=== PATIENT | male | born 1990 ===

== ENCOUNTER 2017-12-26 00:50 | Emergency (ER) | payer SELFPAY ==
[2017-12-26 01:05] VITALS: BMI 27.5
[2017-12-26 01:08] VITALS: RESP 18; TEMP 98.6; O2SAT 98
--- NOTE | 2017-12-26 01:34 | ED PDOC ---
HPI: Psych/Substance Abuse Time Seen by Provider: 12/26/17 01:23 Chief Complaint (Nursing): Alcohol Ingestion Chief Complaint (Provider): etoh, suicidal ideations History Per: Patient, EMS History/Exam Limitations: intoxication Additional Complaint(s): 27 y/o male brought in by EMS for evaluation of alcohol intoxication. As per EMS, patient's partner called 911 because he was drinking tonight and then was found to have a cord wrapped around his neck stating that he wanted to kill himself. Patient admits to drinking 2 bottles of tequila, denies suicidal/ homicidal ideations, hallucinations, or acute medical complaints. Past Medical History Reviewed: Historical Data, Nursing Documentation, Vital Signs Vital Signs: Last Vital Signs Temp 98.6 F 12/26/17 01:05 Pulse 133 H 12/26/17 01:05 Resp 18 12/26/17 01:05 BP 150/86 12/26/17 01:05 Pulse Ox 98 12/26/17 01:05 - Medical History PMH: No Chronic Diseases - Surgical History Surgical History: Hernia Repair - Family History Family History: States: Unknown Family Hx - Social History Current smoker - smoking cessation education provided: No Alcohol: Social Drugs: Denies - Immunization History Hx Tetanus Toxoid Vaccination: Yes Hx Influenza Vaccination: No Hx Pneumococcal Vaccination: No - Home Medications Home Medications: Ambulatory Orders Medication Instructions Recorded Naproxen [Naprosyn] 1 tab PO BID PRN #20 tab 08/16/17 Silver Sulfadiazine 1% [Silvadene 1 ea EXT BID #1 jar 08/16/17 1%] Ibuprofen [Motrin] 600 mg PO Q8 #30 tab 08/18/17 - Allergies Allergies/Adverse Reactions: Allergies Allergy/AdvReac Type Severity Reaction Status Date / Time No Known Allergies Allergy Verified 12/26/17 01:05 Review of Systems ROS Statement: Except As Marked, All Systems Reviewed And Found Negative Psych: Positive for: Suicidal ideation Physical Exam - Reviewed Nursing Documentation Reviewed: Yes Vital Signs Reviewed: Yes - Physical Exam Appears: Positive for: Well, Non-toxic, No Acute Distress Head Exam: Positive for: ATRAUMATIC, NORMAL INSPECTION, NORMOCEPHALIC Skin: Positive for: Normal Color Eye Exam: Positive for: Normal appearance ENT: Positive for: Normal ENT Inspection Cardiovascular/Chest: Positive for: Regular Rate, Rhythm Respiratory: Positive for: Normal Breath Sounds Gastrointestinal/Abdominal: Positive for: Normal Exam Back: Positive for: Normal Inspection Extremity: Positive for: Normal ROM Neurologic/Psych: Positive for: Alert, Oriented - Laboratory Results Result Diagrams: 12/26/17 02:00 12/26/17 02:00 - ECG O2 Sat by Pulse Oximetry: 98 - Progress ED Course And Treament: labs, urine, 1:1, crisis eval 3:30 Patient evaluated by fly worker; does not meet criteria for admission at this time as per Dr. Rosario. Patient stable for discharge. Disposition - Clinical Impression Clinical Impression: Alcohol use disorder - Patient ED Disposition Is Patient to be Admitted: No Counseled Patient/Family Regarding: Studies Performed, Diagnosis, Need For Followup - Disposition Disposition: Routine/Home Disposition Time: 03:47 Condition: STABLE Instructions: Alcohol Use - When Is Drinking a Problem? Print Language: [place]
[2017-12-26 02:04] LABS: BASO # 0.1 K/uL (0.0-0.2); BASO % 0.6 % (0.0-2.0); EOS # 0.1 K/uL (0.0-0.7); EOS % 1.1 % (0.0-4.0); HEMOGLOBIN 16.4 g/dL (12.0-18.0); LYMPH # 3.1 K/uL (1.0-4.3); LYMPH % 35.5 % (20.0-40.0); MEAN CORPUSCULAR HEMOGLOBIN 29.6 pg (27.0-31.0); MEAN CORPUSCULAR HGB CONC 34.1 g/dL (33.0-37.0); MEAN PLATELET VOLUME 7.5 fl (7.2-11.7); MONO # 0.6 K/uL (0.0-0.8); MONO % 6.6 % (0.0-10.0); NEUT # 4.9 K/uL (1.8-7.0); NEUT % 56.2 % (50.0-75.0); NRBC % 0.1 % (0.0-0.0); RBC 5.52 Mil/uL (4.40-5.90); RED CELL DISTRIBUTION WIDTH 13.2 % (11.5-14.5); WHITE BLOOD COUNT 8.8 K/uL (4.8-10.8)
[2017-12-26 02:11] LABS: URINE BILIRUBIN NEGATIVE (NEGATIVE); URINE BLOOD SMALL (NEGATIVE); URINE CLARITY CLEAR (Clear); URINE COLOR STRAW (YELLOW); URINE GLUCOSE (UA) NEG (Normal); URINE LEUKOCYTE ESTERASE NEG Leu/uL (Negative); URINE PROTEIN 30 mg/dL (NEGATIVE); URINE UROBILINOGEN 0.2-1.0 mg/dL (0.2-1.0)
[2017-12-26 02:12] LABS: ALB/GLOB RATIO 1.4 (1.0-2.1); ALBUMIN 4.7 g/dL (3.5-5.0); ALT/SGPT 60 U/L (21-72); AST/SGOT 39 U/L (17-59); BLOOD UREA NITROGEN 17 mg/dl (9-20); CALCIUM 9.3 mg/dL (8.4-10.2); GFR AFRICAN-AMERICAN > 60; GFR NON-AFRICAN AMERICAN > 60
[2017-12-26 02:24] LABS: BARBITURATES, UR NEGATIVE (NEGATIVE); BENZODIAZEPINES, UR NEGATIVE (NEGATIVE); OPIATES, UR NEGATIVE (NEGATIVE); PHENCYCLIDINE, UR NEGATIVE (NEGATIVE)
[2017-12-26 04:01] VITALS: PULSE 80
[2017-12-26 04:04] VITALS: BP 140/80
== END 2017-12-26 04:00 | disposition home or self-care (01) ==
LOC: H.ER 00:50
DX: R45.851 Suicidal ideations (principal); F10.129 Alcohol abuse with intoxication, unspecified
CPT/HCPCS: 80053; 81003; 82948; 85025; 99283; G0480